=== PATIENT | male | born 1990 ===

== ENCOUNTER 2024-06-01 14:48 | Outpatient (AMB) | payer OTHER, SELFPAY ==
--- NOTE | 2024-06-01 14:50 | A.OFFPC_ITS ---
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 Does not vape. Does not drink alcohol. Smokes 3 g of cannabis daily - Has been making healthy dietary choice s. Exercises routinely. Generally sleep well Health maintenance - Last eye exam was 15-20 years ago. Ref erred to Ophthalmology for routine eye care - Last dental visit was 15-20 years ago; encouraged to schedule an appointment with his dentist for routine dental care - Last tetanus vaccine was more than 10 years ago; Refused Tdap vaccine today - Has not been vaccinated for the flu season; declined vaccination [facility] Social History (Updated 06/01/24 @ 14:56 by Marilu Arredondo MA) Housing: Apartment Alcohol intake: former Patient Tobacco Use Status: Never used Tobacco e-Cigarette/Vaping Use: Currently Using Frequency of e-Cigarette/Vaping Use: THC Use of substances other than those prescribed or required for medical reasons: Yes Substance Use Type: Marijuana service: No Current occupational status: employed 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 1. Little interest or pleasure in doing things: not at all 2. Feeling down, depressed, or hopeless: not at all 3. Trouble falling or staying asleep, or sleeping too much: not at all 4. Feeling tired or having little energy: not at all 5. Poor appetite or overeating: not at all 6. Feeling bad about yourself - or that you are a failure or have let yourself or your family down: not at all 7. Trouble concentrating on things, such as reading the newspaper or watching television: not at all 8. Moving or speaking so slowly that other people could have noticed. Or the opposite - being so fidgety or restless that you have been moving around a lot more than usual: not at all 9. Thoughts that you would be better off or of hurting yourself in some way: not at all Total score: 0 Depression Screening Interpretation: Negative Depression Screening Done: Yes 75937 - PHQ-9 Billing: Patient declined-do not bill Source: Developed by Drs. Jordan Church, China Husain, Martin Syed and colleagues, with an educational leola from [employer] Thrive Questionnaire Date Thrive assessed: 06/01/24 I am a: Patient What is your living situation today?: I have a steady place to live Within the past 12 months, did the food you bought not last and you didn't have the money to get more?: I choose not to answer this question Within the past 12 months, did you worry whether your food would run out before you got money to buy more?: I choose not to answer this question Do you have trouble paying for medicines?: I choose not to answer this question Do you have trouble getting transportation to medical appointments?: I choose not to answer this question Do you have trouble paying your heating and electricity bill?: I choose not to answer this question Do you have trouble taking care of your child, family member or friend?: I choose not to answer this question Do you have trouble with day-to-day activities such as bathing, preparing meals, shopping, managing finances, etc.?: I choose not to answer this question Are you currently unemployed and looking for a job?: I choose not to answer this question Are you interested in more education?: I choose not to answer this question Please select the resources that you would like help with: None Currently or been in a relationship where the following occur: I choose not to answer THRIVE Score: 0 AUDIT C Alcohol Use Questionnaire (AUDIT-C) 1. How often do you have a drink containing alcohol?: Never Total Score: 0 ERAN-7 AMB Questionnaire ERAN-7 Date ERAN - 7 assessed: 06/01/24 Feeling nervous, anxious, or on edge: 0 = Not at all Not being able to stop or control worryin = Not at all Worrying too much about different things: 0 = Not at all Trouble relaxin = Not at all Being so restless that it is hard to sit still: 0 = Not at all Becoming easily annoyed or irritable: 0 = Not at all Feeling afraid as if something awful might happen: 0 = Not at all Total ERAN-7 score (0-4 normal; 5-9 mild; 10-14 moderate; 15-21 severe): 0 Source: Developed by Drs. Jordan Church, China Husain, Martin Syed and colleagues, with an educational leola from [employer] ERAN-7 Assessment Billing ERAN-7 Assessment Tool: ERAN-7 Assessment 46382 Review of Systems Const Details: Denies chills, Denies fatigue, Denies fever(s), Denies headache(s) and Denies weakness HEENT Denies change in vision, Denies dizziness, Denies headache(s), Denies hearing loss, Denies nasal congestion, Denies sinus pain, Denies sinus pressure and Denies sore throat Card Denies chest pain, Denies lightheadedness, Denies dyspnea and Denies other (palpitations) Resp Denies cough, Denies dyspnea and Denies wheezing GI Denies abdominal pain, Denies melena, Denies hematochezia, Denies change in bowel habits, Denies dyspepsia and Denies nausea Denies hematuria and Denies dysuria Musc Denies abnormal gait, Denies myalgias, Denies arthralgias, Denies numbness and Denies tingling Skin/Breast Denies rash, Denies unusual bruising and Denies wounds Neuro Denies abnormal gait, Denies dizziness, Denies headache(s), Denies memory loss, Denies numbness, Denies Sensory deficit (Neuro), Denies tingling and Denies weakness Psych Denies anxiety, Denies depression and Denies memory loss Endo Denies cold intolerance, Denies fatigue, Denies heat intolerance, Denies polydipsia and Denies polyuria Derek/Lymph Denies easy bleeding and Denies easy bruising Aller/Immun Denies wheezing Physical exam (Primary Care) Vital Signs: Last Vital Signs Temp 97.9 F 06/01/24 14:57 Pulse 88 06/01/24 14:57 Resp 14 06/01/24 14:57 BP 116/72 06/01/24 14:57 Pulse Ox 96 06/01/24 14:57 Oxygen Delivery Method Room Air 06/01/24 14:57 BMI result Body Mass Index 29.6 Tobacco/Smoking Status: Tobacco use Status Tobacco use date assessed 06/01/24 06/01/24 15:02 Patient Tobacco Use Status Never used Tobacco 06/01/24 15:02 e-Cigarette/Vaping Use Currently Using 06/01/24 15:02 PHQ-9: PHQ-9 Score PHQ-9: Total score 0 06/01/24 15:02 Depression Screening Interpretation: Negative Thrive Assessment: Date of Thrive Assessment Date Thrive assessed 06/01/24 06/01/24 15:02 Currently or been in a relationship where the following occur: I choose not to answer Const Other: General: no acute distress, well developed, alert and awake Nutritional Appearance: well nourished Orientation/consciousness: patient oriented x3 HENMT Head: Yes normocephalic and Yes atraumatic Ears: hearing grossly normal bilaterally and TM's normal bilaterally General nose exam: Normal external nose present and Normal nares present Mouth: Normal oral and palatal mucosa present and moist mucous membranes Teeth and gingiva: dentition normal Throat: Yes oropharynx normal Eyes Pupils: Equal, round and reactive pupils present and Pupil accommodation reflex normal EOM: EOMs intact bilaterally Neck Neck: Yes normal visual inspection, Yes no lymphadenopathy and Yes trachea midline Thyroid: Thyroid normal Carotids: no bruits Lymphatic: no lymphadenopathy noted Chest Chest palpation & inspection: normal inspection of the chest Resp Effort & Inspection: normal respiratory effort Auscultation: clear to auscultation bilaterally Cardio Rate: regular rate Rhythm: regular rhythm Heart sounds: S1 normal heart sound present, S2 normal heart sound present, no gallops, no murmurs and no rubs Bruits: no abdominal aortic bruits and no carotid bruits GI Palpation (GI): No Abdominal aortic bruit present, Soft to palpation, nontender, No hepatosplenomegaly present and No Rebound tenderness present Auscultation: normal bowel sounds General: Yes no CVA tenderness Back/Spine/Pelvis Back: no CVA tenderness Cervical Spine: cervical ROM normal and No Cervical spine tenderness Thoracic/Lumbar Spine: thoraco-lumbar ROM normal, No pain with thoraco-lumbar ROM, No thoracic spinal tenderness and No lumbar spinal tenderness Skin General: warm and dry. Normal skin color. Normal skin turgor Lesions: no lesions Rashes: no rashes Trauma: no lacerations or abrasions Wounds: no wounds Nails: normal Neuro General: patient oriented x3, gait normal and CN's II-XI intact bilaterally Cranial nerves: Yes Equal, round and reactive pupils present Cognition (Neuro): normal cognition Gait exam (Neuro): Normal gait present Motor exam (neuro): 5/5 motor strength present throughout Sensory Exam: No Sensory deficit (Neuro) Deep tendon reflexes (DTR's): Right patellar reflex intensity grade: 2+ and Left patellar reflex intensity grade: 2+ Extrem General: Yes normal to inspection, No edema and No calf tenderness Psych Appearance: grossly normal Affect: normal affect Attitude: cooperative Thought process: Normal thought process present Coding Level of Care Code New Pt Prev Care 18-39yr(26959 Diagnoses Normal physical examination, routine Z00.00 Eye exam, routine Z01.00 Laboratory tests ordered as part of a complete physical exam (CPE) Z00.00 Additional Codes ERAN-7 Assessment Billing - ERAN-7 Assessment Tool: ERAN-7 Assessment 11666 ([id number]) Assessment & Plan Assessment & Plan (1) Normal physical examination, routine: Code(s): Z00.00 - Encounter for general adult medical examination without abnormal findings Category: Medical Plan: No significant functional limitation noted. Healthy diet and routine exercise encouraged. Advised to perform lab work at least 2-3 days before next visit. Follow-up for telehealth visit in 2-3 weeks for labs review. Return sooner with symptoms or concerns. Verbalized understanding and agreed with treatment plan. (2) Eye exam, routine: Code(s): Z01.00 - Encounter for examination of eyes and vision without abnormal findings Category: Medical Plan: Last eye exam was 15-20 years ago. Referred to Ophthalmology for routine eye care. (3) Laboratory tests ordered as part of a complete physical exam (CPE): Code(s): Z00.00 - Encounter for general adult medical examination without abnormal findings Category: Medical Plan: Fasting labs ordered as part of a complete physical exam. Advised to fast for at least 10 hours before getting labs drawn. May drink water Verbalized understanding and agreed with treatment plan. Orders: Orders Complete Blood Count Auto Diff Today Z00.00 - Encounter for general adult medical examination without abnormal findings UA CC w/rflx Micro + Cult Today Z00.00 - Encounter for general adult medical examination without abnormal findings Comprehensive [place]. Panel Fast Today Z00.00 - Encounter for general adult medical examination without abnormal findings Lipid Panel Today Z00.00 - Encounter for general adult medical examination without abnormal findings Microalbumin, Random (w Creat) Today Z00.00 - Encounter for general adult medical examination without abnormal findings TSH reflex Free T4 Today Z00.00 - Encounter for general adult medical examination without abnormal findings Vitamin D 25-OH Total Today Z00.00 - Encounter for general adult medical examination without abnormal findings Referrals Ophthalmology Referral Z01.00 - Encounter for examination of eyes and vision without abnormal findings
[2024-06-01 14:57] VITALS: BP 116/72; PULSE 88; RESP 14; TEMP 36.6; O2SAT 96; BMI 29.6
--- OUTSIDE RECORDS SUMMARY | 2024-06-01 16:17 | XMS_ITS | Encounter Summary ---
Author Organization [facility] Address [address] [place] [address] Care Team Providers Care Direct Response Consultant Name Role Phone Dat Victoria HEDIS COORDINATOR Primary Care Provider [phone] Reason for Visit * Reason Onset Date Comments appointment 05/23/2024 Encounter Details Date Type Department Care Team (Late st Contact Info) Description 05/23/2024 Telephone Gastroenterology - [place] [address] [facility] [address] [address] [place] [address] Vickey Montero MD [address] [facility] [address] [place] [address] appointment Social History Tobacco Use Types Packs/Day Years Used Date Smoking Tobacco: Never Assessed Sex and Gender Information Value Date Recorded Sex Assigned at Not on file Legal Sex Male 9:16 AM EDT Gender Identity Not on file Sexual Orientation Not on file documented as of this encounter Progress Notes * Nimo Cobb - 05/23/2024 10:20 AM EDT Records received from [facility], 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 Unable to leave message for patient, placed in called folder scanned records. documented in this encounter Plan of Treatment Upcoming Encounters Date Type Department Care Team (Latest Contact Info) Description 06/05/2024 7:30 AM EDT Hospital Encounter [facility] Main [place] [address] [place] [phone] Migel Jovel MD [address] [facility] [address] [address] 06/05/2024 7:30 AM EDT - 06/05/2024 9:30 AM EDT Surgery [facility] Main OR [address] [place] [phone] Migel Jovel MD [address] [address] LAPAROSCOPIC CHOLECYSTECTOMY [[id number] (CPT??)] 06/19/2024 10:30 AM EDT Office Visit General Surgery - [place] [address] [phone] Rahat Schmidt, [address] [address] Scheduled Procedures Name Priority Associated Diagnoses Date/Ti me CHOLECYSTECTOMY LAPAROSCOPIC Calculus of gallbladder without cholecystitis without obstruction 06/05/2024 7:30 AM EDT documented as of this encounter Visit Diagnoses Not on filedocumented in this encounter Care Teams Direct Response Consultant Relationship Specialty Start Date End Date Dat Victoria FNP [address] [place] [phone] PCP - General Family Medicine 05/23/24 documented as of this encounter
--- OUTSIDE RECORDS SUMMARY | 2024-06-01 16:17 | XMS_ITS | Encounter Summary ---
Author Organization [facility] Address [address] [place] [address] Care Team Providers Care Landfill Attendant Name Role Phone Dat Victoria FLAVORING MACHINE OPERATOR Primary Care Provider [phone] Reason for Visit * Reason Onset Date Comments Prior Authorization 05/28/2024 06/05/24 Dr. Shaun Jovel Encounter Details Date Type Department Care Team (Late st Contact Info) Description 05/28/2024 Telephone General Surgery - [place] [address] [place] [phone] Migel Jovel MD [address] [place] [address] Prior Authorization (06/05/24 Dr. Migel Jovel) Social History Tobacco Use Types Packs/Day Years Used Date Smoking Tobacco: Never Assessed Sex and Gender Information Value Date Recorded Sex Assigned at Not on file Legal Sex Male 9:16 AM EDT Gender Identity Not on file Sexual Orientation Not on file documented as of this encounter Progress Notes * Breanna Wong - 05/29/2024 10:49 AM EDT I received an notification that no authorization is required. * Breanna Wong - 05/28/2024 2:29 PM EDT He is having surgery with Dr. Jovel on 06/05/24 at [facility]. He has [employer] for insurance. I went online and it is pending for CPT code 80184 documented in this encounter Plan of Treatment Upcoming Encounters Date Type Department Care Team (Latest Contact Info) Description 06/05/2024 7:30 AM EDT Hospital Encounter [facility] Main OR [address] [place] [phone] Migel Jovel MD [address] [address] 06/05/2024 7:30 AM EDT - 06/05/2024 9:30 AM EDT Surgery [facility] Main OR [address] [place] [phone] Migel Jovel MD [address] [address] LAPAROSCOPIC CHOLECYSTECTOMY [[id number] (CPT??)] 06/19/2024 10:30 AM EDT Office Visit General Surgery - [place] [address] [phone] Rahat Schmidt, [address] [address] Scheduled Procedures Name Priority Associated Diagnoses Date/Ti me CHOLECYSTECTOMY LAPAROSCOPIC Calculus of gallbladder without cholecystitis without obstruction 06/05/2024 7:30 AM EDT documented as of this encounter Visit Diagnoses Not on filedocumented in this encounter Care Teams Landfill Attendant Relationship Specialty Start Date End Date Dat Victoria FNP [address] [place] [address] PCP - General Family Medicine 05/23/24 documented as of this encounter
--- OUTSIDE RECORDS SUMMARY | 2024-06-01 16:17 | XMS_ITS | Clinical Summary ---
Author Organization 175 [facility] Address [address] [place] [address] Phone Care Team Providers Care Sole Ruffer Name Role Phone Dat Victoria GISSEL Primary Care Provider [phone] Allergies No known active allergies Medications ondansetron (ZOFRAN) 4 mg tablet 05/22/2024 Active Active Problems Problem Noted Date Diagnosed Date Calculus of gallbladder with out cholecystitis without obstruction 05/25/2024 Encounters Date Type Department Care Team Description 05/28/2024 Telephone General Surgery [address] [place] [phone] Migel Jovel MD Prior Authorization (06/05/24 Dr. Migel Jovel) 05/25/2024 10:30 AM EDT Consult General Surgery [address] [place] [phone] Migel Jovel MD Calculus of gallbladder without cholecystitis without obstruction (Primary Dx) 05/23/2024 Telephone Gastroenterology [address] [place] [phone] Vickey Montero MD appointment from Last 3 Months Surgical History Surgery Date Site/Laterality Comments DENTAL SURGERY Social History Tobacco Use Types Packs/Day Years Used Date Smoking Tobacco: Never Assessed Sex and Gender Information Value Date Recorded Sex Assigned at Not on file Legal Sex Male 9:16 AM EDT Gender Identity Not on file Sexual Orientation Not on file Obstetrics History Last Filed Vital Signs Vital Sign Reading Time Taken Comments Blood Pressure 130/84 05/25/2024 10:53 AM EDT Pulse 66 05/25/2024 10:53 AM EDT Temperature - - Respiratory Rate - - Oxygen Saturation - - Inhaled Oxygen Concentration - - Weight 92.1 kg (203 lb) 05/28/2024 10:00 AM EDT Height 175.3 cm (5' 9 ) 05/28/2024 10:00 AM EDT Body Mass Index 29.98 05/28/2024 10:00 AM EDT Plan of Treatment Upcoming Encounters Date Type Department Care Team (Latest Contact Info) Description 06/05/2024 7:30 AM EDT Hospital Encounter [facility] Main OR [address] [place] [phone] Migel Jovel MD [address] [address] 06/05/2024 7:30 AM EDT - 06/05/2024 9:30 AM EDT Surgery [facility] Main OR [address] [place] [address] Migel Jovel MD [address] [address] LAPAROSCOPIC CHOLECYSTECTOMY [[id number] (CPT??)] 06/19/2024 10:30 AM EDT Office Visit General Surgery - [place] [address] [phone] Rahat Schmidt DO [address] [address] Scheduled Procedures Name Priority Associated Diagnoses Date/Ti me CHOLECYSTECTOMY LAPAROSCOPIC Calculus of gallbladder without cholecystitis without obstruction 06/05/2024 7:30 AM EDT Health Maintenance Due Date Last Done Comments DTaP,Tdap,and Td Vaccines (1 - Tdap) 11/17/2011 Hepatitis B Vaccines (1 of 3 - 19+ 3-dose series) 11/17/2011 COVID-19 Vaccine (2023-2 5 season) 2023 Depression Screening 05/23/2024 HIV Screening 05/23/2024 Hepatitis C Screening 05/23/2024 Social Influencers of Health Screening 05/23/2024 Influenza Vaccine (Season Ended) 2024 HIB Vaccines Aged Out No longer eligi ble based on patient's age to complete this topic HPV Vaccines Aged Out No longer eligi ble based on patient's age to complete this topic Hepatitis A Vaccines Aged Out No long er eligible based on patient's age to complete this topic IPV Vaccines Aged Out No longer eligi ble based on patient's age to complete this topic MMR Vaccines Aged Out No longer eligi ble based on patient's age to complete this topic Meningococcal ACWY Vaccine Aged Out N o longer eligible based on patient's age to complete this topic Meningococcal B Vacine Aged Out No lo nger eligible based on patient's age to complete this topic Pneumococcal Vaccine: Pediat rics (0 to 5 Years) and At-Risk Patients (6 to 64 Years) Aged Out No longer eligible b ased on patient's age to complete this topic RSV Immunization Patients Un natty 20 months Aged Out No longer eligible b ased on patient's age to complete this topic Varicella Vaccines Aged Out No longer eligible based on patient's age to complete this topic Procedures Procedure Name Priority Date/Time Associated Diagnosis Comments EXTERNAL ULTRASOUND REPORT Routine 05/29/2024 7:16 AM EDT from Last 3 Months Results * External Ultrasound Report (05/29/2024 7:16 AM EDT) Anatomical Region Laterality Modality Ultrasound us Historical Provider MD MEJIA US PROCEDURES Final R esult from Last 3 Months Insurance [facility] [employer] Care Teams Sole Ruffer Relationship Specialty Start Date End Date Dat Victoria FNP [address] [place] [address] PCP - General Family Medicine 05/23/24
== END 2024-06-01 15:59 | disposition home or self-care (01) ==
LOC: HO.HMCFM 14:48
PROVIDERS: PCP Nurse Practitioner Family; Visit Provider Nurse Practitioner Family
DX: Z00.00 Encounter for general adult medical examination without abnormal findings (principal)

== ENCOUNTER → 2024-06-01 14:48 | Outpatient (BNVA) | payer OTHER, SELFPAY | PROVIDERS: PCP Nurse Practitioner Family; Visit Provider Nurse Practitioner Family | DX: Z00.00 Encounter for general adult medical examination without abnormal findings (principal) | CPT/HCPCS: 96127; 99385 ==

== ENCOUNTER 2024-06-06 09:02 | Outpatient (REF) | payer OTHER, SELFPAY ==
--- OUTSIDE RECORDS SUMMARY | 2024-06-06 09:33 | XMS_ITS | Encounter Summary ---
Author Organization [facility] Address [address] [place] [phone] Care Team Providers Care Rat Exterminator Name Role Phone Dat Victoria Primary Care Provider [phone] Reason for Visit * Reason Onset Date Comments appointment 05/23/2024 Encounter Details Date Type Department Care Team ([facility] st Contact Info) Description 05/23/2024 Telephone Gastroenterology - [place] [address] [place] [phone] Vickey Montero MD [address] [place] [address] appointment Social History Tobacco Use Types Packs/Day Years Used Date Smoking Tobacco: Never Assessed Sex and Gender Information Value Date Recorded Sex Assigned at Not on file Legal Sex Male 9:16 AM EDT Gender Identity Not on file Sexual Orientation Not on file documented as of this encounter Progress Notes * Nimo Cobb - 05/23/2024 10:20 AM EDT Records received from [facility], 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 Unable to leave message for patient, placed in called folder scanned records. documented in this encounter Plan of Treatment Not on file documented as of this encounter Visit Diagnoses Not on filedocumented in this encounter Care Teams Rat Exterminator Relationship Specialty Start Date End Date Dat Victoria FNP [address] [place] [address] PCP - General Family Medicine 05/23/24 documented as of this encounter
--- OUTSIDE RECORDS SUMMARY | 2024-06-06 09:33 | XMS_ITS | Clinical Summary ---
Author Organization [facility] Address [address] [place] [address] Phone Care Team Providers Care Sound Engineering Technician Name Role Phone Dat Victoria GISSEL Primary Care Provider [phone] Allergies No known active allergies Medications ondansetron (ZOFRAN) 4 mg tablet 05/22/2024 Active Active Problems Problem Noted Date Diagnosed Date Calculus of gallbladder with out cholecystitis without obstruction 05/25/2024 Encounters Date Type Department Care Team Description 06/05/2024 Telephone General Surgery [address] [phone] Migel Jovel MD 06/04/2024 11:59 PM EDT Anesthesia Event [facility] Main OR [address] [place] [address] Erasto Kaufman SRNA 05/28/2024 Telephone General Surgery [facility] [address] [phone] Migel Jovel MD Prior Authorization (06/05/24 Dr. Migel Jovel) 05/25/2024 10:30 AM EDT Consult General Surgery [address] [phone] Migel Jovel MD Calculus of gallbladder without cholecystitis without obstruction (Primary Dx) 05/23/2024 Telephone Gastroenterology [address] [phone] Vickey Montero MD appointment from Last 3 [...] 05/28/2024 10:00 AM EDT Plan of Treatment Health Maintenance Due Date Last Done Comments [...] age to complete this topic Meningococcal B Vaccine Aged Out No l onger eligible based on patient's age to complete [...] R esult from Last 3 Months Insurance [facility] Care Teams Sound Engineering Technician Relationship Specialty Start Date End Date Dat Victoria FNP [address] [place] [phone] PCP - General Family Medicine 05/23/24
--- OUTSIDE RECORDS SUMMARY | 2024-06-06 09:33 | XMS_ITS | Encounter Summary ---
Author Organization [facility] Address [address] [place] [address] Care Team Providers Care Blasting Gang Miner Name Role Phone Dat Victoria Primary Care Provider [phone] Encounter Details Date Type Department Care Team ([facility] st Contact Info) Description 06/05/2024 Telephone General Surgery - [place] [address] [facility] [address] [place] [phone] Migel Jovel MD [address] [facility] [address] [place] [address] Social History Tobacco Use Types Packs/Day Years Used Date Smoking Tobacco: Never Assessed Sex and Gender Information Value Date Recorded Sex Assigned at Not on file Legal Sex Male 9:16 AM EDT Gender Identity Not on file Sexual Orientation Not on file documented as of this encounter Progress Notes * Maria C Keyes - 06/05/2024 8:54 AM EDT Patient canceled - can't take time out of work . documented in this encounter Plan of Treatment Not on file documented as of this encounter Visit Diagnoses Not on filedocumented in this encounter Care Teams Blasting Gang Miner Relationship Specialty Start Date End Date Dat Victoria FNP [address] [place] [phone] PCP - General Family Medicine 05/23/24 documented as of this encounter
--- OUTSIDE RECORDS SUMMARY | 2024-06-06 09:33 | XMS_ITS | Encounter Summary ---
Author Organization [facility] Address [address] [place] [address] Care Team Providers Care Blocklayer Name Role Phone Dat Victoria Primary Care Provider [phone] Encounter Details Date Type Department Care Team (Late st Contact Info) Description 06/05/2024 11:59 PM EDT Anesthesia Event [facility] Main OR [address] [place] [address] Erasto Kaufman SRNA Anesthesia Record Procedure Summary Procedure Name Responsible Anesthesiologist Anesthesia Start Time Anesthesia Stop Time LAPAROSCOPIC CHOLECYSTECTOMY (canceled) Events No events on file. Meds * Agents No agents on file. * Blood No blood administrations on file. Lines, Drains, and Airways No LDAs on file. documented in this encounter Social History Tobacco Use Types Packs/Day Years Used Date Smoking Tobacco: Never Assessed Sex and Gender Information Value Date Recorded Sex Assigned at Not on file Legal Sex Male 9:16 AM EDT Gender Identity Not on file Sexual Orientation Not on file documented as of this encounter Plan of Treatment Not on file documented as of this encounter Visit Diagnoses Not on filedocumented in this encounter Care Teams Blocklayer Relationship Specialty Start Date End Date Dat Victoria FNP [address] [place] [phone] PCP - General Family Medicine 05/23/24 documented as of this encounter
[2024-06-06 12:06] LABS: Basophils Percent Auto 0.9 % (0-2); Eosinophils Absolute Auto 0.2 X10*3/uL (0.0-0.4); Eosinophils Percent Auto 3.5 % (0-4); Hemoglobin 14.8 g/dl (14.0-18.0); Imm Gran Abs Auto 0.01 X10*3/uL (0.00-0.03); Imm Gran Pct Auto 0.2 % (0.0-0.4); Lymphocytes Absolute Auto 1.9 X10*3/uL (1.2-4.9); Lymphocytes Percent Auto 41.9 % (20-40); Mean Corpuscular HGB Conc 34.4 g/dl (31.0-36.0); Mean Corpuscular Hemoglobin 30.3 pg (27.0-33.0); Mean Corpuscular Volume 87.9 fL (80.0-98.0); Monocytes Absolute Auto 0.3 X10*3/uL (0.1-1.2); Neutrophils Absolute Auto 2.1 x10*3/uL (2.0-8.3); Neutrophils Percent Auto 46.5 % (45-73); Red Blood Count 4.89 X10*6/uL (4.60-5.80); Red Cell Distribution Width 13.2 % (11.0-16.0); White Blood Count 4.6 X10*3/uL (4.8-10.8)
[2024-06-06 12:33] LABS: Appearance Urine Clear; Color Urine Dark Yellow; Glucose Urine UA Negative (Negative); Leukocyte Esterase Urine Negative (Negative); Nitrite Urine Negative (Negative); PH 6.5 (5.0-9.0); Specific Gravity - Urine 1.025 (1.005-1.025); Urine Blood Negative (Negative); Urine Ketones Trace mg/dL (Negative); Urine Protein Negative (Neg-Trace)
[2024-06-06 12:33] LABS: Alanine Aminotransferase 150 U/L (0-40); Albumin Level 4.2 g/dL (3.5-5.0); Alkaline Phosphatase 60 U/L (39-117); Anion Gap 10 (12-20); Aspartate Amino Transferase 124 U/L (5-37); Bilirubin Total 0.7 mg/dL (0.0-1.0); Blood Urea Nitrogen 10 mg/dL (9-16); Calcium 9.2 mg/dL (8.4-10.2); Carbon Dioxide 25 mmol/L (22-29); Chloride 109 mmol/L (96-108); Cholesterol 142 mg/dL (<200); Estimated Glomerular Filt Rate > 60; Glucose Fasting 114 mg/dL (60-99); HDL Cholesterol 28 mg/dL (>40); LDL Cholesterol Calculated 63 mg/dL (<100); MANUAL DIFF FLAG SCAN; Mean Platelet Volume 12.6 fL (9.4-12.4); Platelet Count 86 X10*3/uL (160-400); Sodium 140 mmol/L (135-145); Triglycerides 256 mg/dL (<150)
[2024-06-06 12:34] LABS: SLIDE REVIEW VERIFIED
[2024-06-06 12:36] LABS: Vitamin D 25-OH Total 44.8 ng/mL (>30)
[2024-06-06 12:48] LABS: Creatinine Urine 218.12 mg/dL; Microalbum/Creatinine Ratio Ur 8.2 ug/mg cr (<30)
== END 2024-06-06 09:03 | disposition home or self-care (01) ==
LOC: HO.WFDLDS 09:02
PROVIDERS: Visit Provider Nurse Practitioner Family
DX: Z00.00 Encounter for general adult medical examination without abnormal findings (principal)
CPT/HCPCS: 36415; 80053; 80061; 81003; 82043; 82306; 82570; 84443; 85025